=== PATIENT | female | born 1985 | race Caucasian/White ===

== ENCOUNTER 2024-03-14 21:46 | Emergency (ER) | payer OTHER, SELFPAY ==
--- OUTSIDE RECORDS SUMMARY | 2024-03-14 21:48 | XMS_ITS | Clinical Summary ---
Author Organization [facility] Address [place], [place] [address] Care Team Providers Care Freight Router Name Role Phone Pcp, No Primary Care Provider Unavailabl e Allergies Active Allergy Reactions Criticality Noted Date Comments Latex Rash 03/05/2015 Hydrocodone-Acetaminophen Itching 07/18/2013 Medications No known medications Active Problems No known active problems Immunizations Name Administration Dates Next Due Tdap 02/21/2008 Family History Medical History Relation Name Comments Good Health Father Good Health Mother Cancer Paternal Grandfather throat- unsure of smoking status Relation Name Status Comments Father Mother Paternal Grandfather Social History Tobacco Use Types Packs/Day Years Used Date Smoking Tobacco: Never Smokeless Tobacco: Never Tobacco Cessation:Counseling Given: Yes Alcohol Use Standard Drinks/Week Comments Yes 0 (1 standard drink = 0.6 oz pur e alcohol) occassional Social Connections Answer Date Recorded Frequency of Communication with Friends and Fami ly Not on file 03/09/2021 Financial Resource Strain Answer Date R ecorded Difficulty of Paying Living Expenses Not on file 03/09/2021 Difficulty of Paying Living Expenses Not on file 03/09/2021 Comments No Sex and Gender Information Value Date Recorded Sex Assigned at Not on file 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 Gender Identity Not on file Sexual Orientation Not on file Obstetrics History Para Term AB IAB SAB Ectopic Multiple Livin g Live Births 0 0 0 0 0 0 0 0 0 0 Last Filed Vital Signs Vital Sign Reading Time Taken Comments Blood Pressure 138/81 07/24/2015 2:46 PM CDT Pulse 94 07/24/2015 2:46 PM CDT Temperature 36.1 C (97 F) 07/24/2015 2:46 PM CDT Respiratory Rate - - Oxygen Saturation 100% 07/24/2015 2:46 PM CDT Inhaled Oxygen Concentration - - Weight 117.6 kg (259 lb 3.2 oz) 07/24/2015 2:46 PM CDT Height 171.8 cm (5' 7.64) 07/24/2015 2:46 PM CD T Body Mass Index 39.83 07/24/2015 2:46 PM CDT Plan of Treatment Health Maintenance Due Date Last Done Comments HIV for age 15-65 01/03/2000 Hepatitis C screening for age 18-79 2003 Pap test for age 21-65 2006 BMI (ht and wt on same day) for age 18+ 07/23/2016 07/24/2015 Depression screening for age 12+ 07/23/2016 07/24/2015 Tetanus booster 02/20/2018 02/21/2008 COVID-19 vaccine series (2023- season) 2023 Influenza for age 9-49 11/08/2023 Tdap Completed 02/21/2008 (Comp leted outside of [facility]), 02/21/2008 Pneumococcal series for age 6-49 Aged Out No longer eligible based on patient's age to complete this topic Care Teams Freight Router Relationship Specialty Start Date End Date Pcp, No . PCP - General 07/18/13
[2024-03-14 21:59] VITALS: BP 179/134; PULSE 75; RESP 16; TEMP 36.1; O2SAT 98; BMI 42.3
--- NOTE | 2024-03-15 00:44 | ED.GENADULT ---
HPI - General Adult General Chief complaint: Dental/Oral/Mouth Injury/Pain Stated complaint: Bad tooth pain Time Seen by Provider: 03/14/24 23:31 Source: patient Mode of arrival: ambulatory Limitations: no limitations History of Present Illness HPI narrative: 39-year-old female presents the emergency department with a 4-5 day history of dental pain, significantly worsening over the past 3 days. No trauma or injury. Does have several broken teeth. Has attempted to get into the dentist for the past day with no significant success. No fever. But she does feel like her left cheek is starting to swell home. She has pain radiating along the maxillary bone. No pain in the jaw, posterior throat or difficulty breathing. No difficulty swallowing. Has been able to eat and drink though it is tender with certain foods. She is concerned that an abscesses forming due to the pain starting to radiate up into the sinus area. No vision difficulty or difficulty moving her eyes. No prior history of major dental surgeries other than typical root canals and cavity treatments. Reports that she called 9 office is in is unable to secure any appointment at this time. Unfortunately I am not surprised to hear this. She states that she has no long-term medical problems, no chronic illnesses. She does not take any prescription medications. She has an allergy to Vicodin which causes itching but she has tolerated Percocet once in the past. ROS is notable for the dental pain only, otherwise denies other HEENT, generalized, neck, respiratory or skin changes. Related Data Home Medications ?Medication ?Instructions ?Recorded ?Confirmed No Known Home Medications 03/14/24 03/14/24 Allergies Allergy/AdvReac Type Severity Reaction Status Date / Time acetaminophen (From Vicodin) Allergy Verified 03/14/24 22:01 hydrocodone (From Vicodin) Allergy Verified 03/14/24 22:01 latex Allergy Verified 03/14/24 22:01 Exam Const: Vital Signs, click to edit/add: Vital Signs - 24 hr 03/14/24 21:59 Temperature 97 F L Pulse Rate [Pulse Oximeter] 75 Respiratory Rate 16 Blood Pressure [Le ft Upper Arm] 179/134 H Pulse Oximetry 98 Oxygen Delivery Me thod Room Air Common normals: no apparent distress General appearance: cooperative, comfortable and well kempt HENMT: Common normals: normocephalic Head and scalp: normocephalic Other: Reported facial swelling but really does seem symmetric on external exam. Nasal mucosa is congested with mucopurulent drainage but that is bilateral. She does have maxillary sinus tenderness on the left. Fully normal extraocular movements with no signs of impingement. Both TMs appear normal. Normal opening and closing of the jaw with no signs of obstruction. Inside the mouth, broken and missing teeth a the left upper 1st molar and left upper 1st premolar area. Additional broken missing tooth right lower jaw as well. Only the left upper 1st premolar has significant tenderness. Mild swelling of the surrounding gum is noted but no drainage. Eye: Common normals: conjunctivae normal General eye: normal appearance of both eyes Conjunctiva: conjunctiva(e) normal Neck & C-Spine: Common normals: full ROM and no lymphadenopathy General: normal visual inspection Resp: Common normals: normal respiratory effort, no use of accessory muscles and clear to auscultation bilaterally Effort & inspection: able to speak in complete sentences Auscultation: clear to auscultation bilaterally Cardio: Common normals: regular rate, regular rhythm, S1 normal heart sound, S2 normal heart sound and no murmurs Rate: regular rate Rhythm: regular rhythm Heart sounds: S1 normal and S2 normal Psych: Common normals: cooperative Appearance: well kempt Attitude: engaged Insight: insight good Judgement: judgment good Skin: Common normals: no rashes or lesions noted General skin exam: no rashes or lesions noted Course Course ED Course: 39-year-old female with extensive dental caries and point tenderness suspicious for development of interval dental abscess. No signs of airway compromise, pharyngeal swelling, sepsis or other complication. Will treat with Augmentin, Toradol and very limited supply of 4 tablets of oxycodone through [facility]. Counseled patient that she will still need definitive treatment through a dentist and it is her responsibility to call and arrange this. Alarm symptoms reviewed that would warrant ED presentation. She verbalizes understanding and agreement also counseled on the use of Tylenol 1000 mg every 6 hours for pain. Vital Signs Vital signs: Initial Vital Signs Temperature 97 F L 03/14/24 21:59 Temperature Source Temporal Artery Scan 03/14/24 21:59 Pulse Rate 75 03/14/24 21:59 Respiratory Rate 16 03/14/24 21:59 Blood Pressure 179/134 H 03/14/24 21:59 Blood Pressure Mean 149 H 03/14/24 21:59 Blood Pressure Position Sitting 03/14/24 21:59 Pulse Oximetry 98 03/14/24 21:59 Oxygen Delivery Method Room Air 03/14/24 21:59 Vital Signs Temperature 97 F L 03/14/24 21:59 Pulse Rate 75 03/14/24 21:59 Respiratory Rate 16 03/14/24 21:59 Blood Pressure 179/134 H 03/14/24 21:59 Pulse Oximetry 98 03/14/24 21:59 Oxygen Delivery Method Room Air 03/14/24 21:59 Temperature 97 F L 03/14/24 21:59 Pulse Rate 75 03/14/24 21:59 Respiratory Rate 16 03/14/24 21:59 Blood Pressure 179/134 H 03/14/24 21:59 Pulse Oximetry 98 03/14/24 21:59 Oxygen Delivery Method Room Air 03/14/24 21:59 Discharge Plan Discharge Clinical Impression: Dental abscess Patient Disposition: Home w/ Parent or Adult Condition: Stable Instructions: Dental Abscess (ED) Additional Instructions: As we discussed, you will still need to continue searching for definitive dental treatment to treat your dental infection. I have straight to on an antibiotic, Augmentin. Take this 1 tablet 2 times daily for the next 10 days. I have also given a prescription for Toradol which is an anti-inflammatory pain medication. Please do not use additional ibuprofen while you are taking the Toradol. Remember that Tylenol also known as acetaminophen is different than either of those medications and may also be taken at a 1000 mg every 6 hours. If you have difficulty sleeping, remember that 1-2 tablets of Benadryl and or 10 mg of melatonin may help as well. I have given you a very small supply of for oxycodone tablets to use if the pain is severe at night. Try to avoid this during the day. We cannot give additional refills of this medication due to the limitations of our licensing as medical physicians rather than dental providers. Do not drive on this medication. If you have significant difficulty swallowing, airway difficulty or cannot breathe, please return to the emergency department. Activity Level: No Restrictions Discharge Diet: Regular Prescriptions: No Action No Known Home Medications Stand Alone Forms: [facility] Info Instructions
--- OUTSIDE RECORDS SUMMARY | 2024-03-15 00:53 | XMS_ITS | Clinical Summary ---
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 PCP - General 07/18/13
== END 2024-03-15 01:23 | disposition home or self-care (01) ==
PROVIDERS: Emergency Provider Family Medicine
DX: K04.7 Periapical abscess without sinus (principal)
CPT/HCPCS: 99283; 99284